=== PATIENT | female | born 1955 | race Caucasian/White ===

== ENCOUNTER → 2019-11-30 | Outpatient (CLI) | payer MEDICARE, MEDICAID ==
[2019-11-06 15:00] VITALS: BP 147/92
[~2019-11-30] MED LIST: DULO40CA2 PO; HYDR-2761 PO; MELO15TA23 PO; OMEP40CA45 PO; PREG75CA PO
--- NOTE | 2019-11-30 15:14 | RAD ---
Examination: PET W CT SKULL TO MIDTHIGH History: Lung metastases initial evaluation. Right renal malignancy. Comparison/Correlation: 11/03/2019 CTA of the chest FINDINGS: Net dose 14.3 mCi F-18 FDG was administered intravenously for purposes of whole body PET/CT exam. Blood glucose level at the time of radiotracer administration was 124 mg/dL. Hepatic reference uptake is SUV max of 2. Uptake of radiotracer involving the visualized head is unremarkable. There is uptake corresponding to the right C2-3 facet joint with degenerative changes present. SUV max is 3.4. Numerous lymph nodes at the right base of neck and superior mediastinum identified similar to CTA of the chest examination have SUV maximum of up to 8. Bilateral hilar lymph nodes. Sizable right are again noted without significant change. Intense uptake seen. Progression of right anterior mid thoracic atelectasis at the level noted. Multiple pulmonary nodules are again identified and nearly all of these have intense uptake. Left lateral pleural-based mass at the midthoracic level is present. SUV max of 16 is noted of this mass. Uptake otherwise is of lesser intensity at other masses. Interstitial thickening of the lung flowers is noted. Patchy consolidation involving the right posterior basilar aspect is greater than on the prior exam. The left medial basilar aspect in the paraspinal, costophrenic sulcus retention a mass is again identified and has increased in size in the interval with a measurement of up to 8.5 cm x 3.7 cm. This represents an increase compared with prior exam approximately 1.3 cm x 0.8 cm in the axial plane. Intense uptake is evident with SUV max of 14. Enlarged lymph nodes again are seen involving the upper abdomen at the aortocaval region superior to and at the level of the right renal hilum. SUV max of up to 8.7 is noted. Lymph nodes are similar in size and morphology compared to the prior exam. Right renal lower pole mass is present with intense uptake and SUV max of 13. Longitudinal measurement of 4.5 cm noted. Photopenic region at the inferior patellar osseous mass compatible necrosis noted. Enlarged Aortocaval lymph nodes are present at the infrarenal level with intense uptake seen. Lytic lesion is present involving the right superior acetabular region medially with soft tissue extension into the pelvic cavity. This mass is identified with bony destruction present and it measures 6.0 cm x 5 cm x 7 cm longitudinal. Destructive involving the right acetabular roof is extensive. Right femoral head appears intact. IMPRESSION: Intense uptake corresponding to known pulmonary metastases and lymphadenopathy compatible with active disease. Increased size of the left medial basilar mass is noted. Increased right anterior mid thoracic and right posterior basilar consolidations. Large right renal mass with intense uptake as well as a large region of necrosis. Right acetabular mass with significant destructive involvement including of the acetabular roof is present. Uptake at the right C2-3 facet joint which probably relates to degenerative change although slightly greater than expected uptake for degenerative changes noted. Further evaluation with MRI cervical spine without and with contrast able to assess for metastatic involvement is recommended if able. PQRS Compliance Statement: One or more of the following individualized dose reduction techniques were utilized for this examination: 1. Automated exposure control 2. Adjustment of the mA and/or kV according to patient size 3. Use of iterative reconstruction technique Electronically signed by: Wali Grande MD (11/30/2019 3:11 PM) [facility]
== END | disposition home or self-care (01) ==
LOC: PETSC 08:45
PROVIDERS: ATTEND Internal Medicine Hematology & Oncology
DX: C78.00 Secondary malignant neoplasm of unspecified lung (principal); C64.1 Malignant neoplasm of right kidney, except renal pelvis; N28.89 Other specified disorders of kidney and ureter; R59.1 Generalized enlarged lymph nodes; J98.11 Atelectasis; R91.8 Other nonspecific abnormal finding of lung field
CPT/HCPCS: 78815; A9552